=== PATIENT | male | born 1945 | race Caucasian/White ===

== ENCOUNTER 2016-09-20 05:42 | Day surgery (SDC) | payer MEDICARE, OTHER ==
[~2016-09-20] VITALS: Ht 177.8 cm; Wt 144.6 kg
[2016-09-20] VITALS (12 sets, daily range): BP systolic 103–126; BP diastolic 61–78; PULSE 64–90; RESP 14–25; O2SAT 92–99
[~2016-09-20 05:42] MED LIST: ASPI325T32 PO; ATOR20TA PO; DILT240C89 PO; DOCO1CAP3 PO; LEVO125T6 PO; LISI1TAB9 PO; Lactated Ringer's 1,000 ML IV ONE; MULT-1073 PO
[2016-09-20] MEDS ORDERED: Succinylcholine Chloride 20 mg/mL 5 mL Inj ONE (05:43)
[2016-09-20] MEDS ORDERED: Propofol 10,000 mCg/mL 20 mL Inj ONE (05:43)
[2016-09-20] MEDS ORDERED: Ondansetron 2 mg/mL 2 mL Inj ONE (05:43)
[2016-09-20] MEDS ORDERED: HYDROmorphone 2 mg/mL Inj ONE (05:43)
[2016-09-20] MEDS ORDERED: Rocuronium 10 mg/mL 5 mL Inj ONE (05:43)
[2016-09-20] MEDS ORDERED: fentaNYL-PF 50 mCg/mL 2 mL Inj ONE (05:43)
[2016-09-20] MEDS ORDERED: CeFAZolin Inj 3 Gm/ D5W 50 mL Bag IV ONE (05:48)
[2016-09-20] MEDS ORDERED: Bupivacaine Liposome 1.3% 20 mL Inj NERVEBLOCK ONE (06:00)
[2016-09-20] MEDS ORDERED: Tranexamic Acid Inj 1,000 MG in 0.9% Sodium Chloride 100 ML IV SCH (06:00)
[2016-09-20] MEDS ORDERED: CeFAZolin Inj 3 GM in Dextrose 5% Minibag Plus 50 ML IV ONE (06:00)
[2016-09-20] MEDS ORDERED: Lactated Ringer's 1,000 ML IV ONE (06:07)
[2016-09-20] MEDS ORDERED: Vancomycin 1,000mg/200 mL NS IV ONE (07:32)
[2016-09-20] MEDS ORDERED: MetoCLOpramide 5 mg/mL 2 mL Inj IVPUSH PRN ×2 (07:40→07:55)
[2016-09-20] MEDS ORDERED: Magnesium Hydroxide 10 mL Oral Concentration PO PRN (07:40)
[2016-09-20] MEDS ORDERED: Sodium Biphos-Phos 133 mL Enema RECTAL PRN (07:40)
[2016-09-20] MEDS ORDERED: Vancomycin Dose per Pharmacist XX ONE ×2 (07:40)
[2016-09-20] MEDS ORDERED: Ondansetron 2 mg/mL 2 mL Inj IVPUSH PRN ×2 (07:40→07:55)
[2016-09-20] MEDS ORDERED: Polyethylene Glycol (PEG) 17 Gm Powder PO PRN (07:40)
[2016-09-20] MEDS ORDERED: diphenhydrAMINE 25 mg Capsule PO PRN (07:40)
[2016-09-20] MEDS ORDERED: Vancomycin Inj 2,500 MG in 0.9% Sodium Chloride 1,000 ML IV ONE (07:41)
[2016-09-20] MEDS ORDERED: Lactated Ringer's 500 ML IV PRN (07:53)
[2016-09-20] MEDS ORDERED: Lactated Ringer's 1,000 ML IV SCH (07:53)
--- NOTE | 2016-09-20 07:53 | PCM.HPANE ---
Patient Data Date of Service: September 20, 2016 (0715) Surgeon Admitting Provider: Attending Provider:Doug Valiente MD Primary Care Physician:Dread Ozuna MD Other Provider:Stas Lundberg Anesthesia Reason for Visit Left Knee Arthritis LEFT KNEE ARTHRITIS Ht/WT & BMI Height (Feet): 5 Height (Inches): 10.00 Weight (Kilograms): 144.600 Body Mass Index 45.00 Allergies Coded Allergies: codeine (Verified Allergy, Intermediate, ITCHING, 10/11/14) Past Anesthesia History Anesthesia History: Denies:: Abnormal Airway, Anesthesia Reactions, Difficult Intubation, Fam Anesthesia Reaction, Fam Malignant Hypertherm, Malignant Hyperthermia Diabetes History Hx Diabetes?: No MRSA MRSA: No Medications Blood Thinner: Aspirin Hypertension Medication: Yes Home Meds Incl Beta Aysha: No Reported Medications Lisinopril / HCTZ 20-12.5 mg 1 Each Tablet1 Each PO DAILY Ref 0 09/15/16 Levothyroxine 125 Mcg Ifeedw465 Mcg PO DAILY For Thyroid Replacement Ref 0 09/15/16 Diltiazem ER 240 Mg Cap.er.81s882 Mg PO DAILY Ref 0 09/15/16 Docosahexanoic Acid/Epa (Fish Oil Concentrate Softgel)1 Each Capsule1 Each PO 3xweek 09/15/16 Multivits-Min/FA/Lycopene/Lut (Centrum Silver Tablet)1 Each Tablet1 Each PO DAILY 09/15/16 Atorvastatin (Lipitor)20 Mg Alngkk99 Mg PO DAILY Ref 0 09/15/16 Aspirin 325 Mg Frfofp990 Mg PO DAILY #1 BOTTLE 09/15/16 Discontinued Reported Medications Multivitamin (Multivitamins)1 Each Capsule1 Each PO 10/11/14 Aspirin 325 Mg Tablet.dr325 Mg PO DAILY #1 BOTTLE Ref 0 10/11/14 Levothyroxine (Synthroid)125 Mcg Zslmdg576 Mcg PO DAILY 30 Days Ref 0 10/11/14 Lisinopril / HCTZ 20-12.5 mg 1 Each Tablet1 Each PO DAILY 30 Days Ref 0 10/11/14 Atorvastatin (Lipitor)20 Mg Tmqcas92 Mg PO DAILY 30 Days Ref 0 10/11/14 Diltiazem HCl (Diltiazem 24Hr ER)240 Mg Cap.er.52n440 Mg PO DAILY 30 Days Ref 0 10/11/14 History History of ENT Problems?: No HEENT History: Denies:: Abnormal Airway Difficult Intubation Dysphagia Hearing Problem Denture Type: None Teeth Condition: Within Normal Limits Hx of Heart Problems?: Yes Cardiovascular History: Positive for:: Atrial Fibrillation Hypertension Denies:: AICD Chest Pain Pacemaker Valvular Heart Disease (echo 2011- ef 60-65%) Hx of Respiratory Problem?: Yes Respiratory History: Positive for:: Use of C-PAP Machine Denies:: Asthma COPD Cough Hemoptysis Oxygen Administration Pneumonia Tuberculosis Hx Neurologic Problems?: No Neurological History: Denies:: CVA Dementia Multiple Sclerosis Parkinson's Disease Seizures Hx of GI Problems?: Yes Hx of Problems?: No Male Hx: Denies:: Prostate Problems Skin History: Denies:: History Skin Disorders? Hx Musculoskeletal Problems?: Yes Musculoskeletal History: Positive for:: Musculoskeletal Trauma (left knee current admission problem) Osteoarthritis Denies:: Joint Replacement Psycho Social History: Denies:: Anxiety Hx Depression Hx Surgeries?: Yes (ARMS, SHOULDERS, RIBS, HIP) Hx Any Other Health Problems?: Yes Other History: Denies:: Cancer Hx Diabetes: No Hx Alcohol Use: Yes (10 DRINKS/WEEK)Hx Substance Use: No Smoking Status: Never Smoker Have You Smoked inLast 12 mo: No Stop/Bang P-Blood Pressure: treated: Yes B- Body Mass Index > 35 kg/m2: Yes A- Age over 50: Yes N- Neck Large Circumference: Yes G- Gender Male: Yes Risk Assessment Category Category 1A: Patient has history of documented sleep apnea, and HAS NOT received any narcotic, sedative or anesthesia administration during this stay. Category 1B: Patient has history of documented sleep apnea, and HAS received any narcotic , sedative or anesthesia administration during this stay Category 2: Patient has SUSPECTED Obstructive Sleep Apnea, and HAS received any narcotic , sedative or anesthesia administration during this stay. Category 3: Patient has SUSPECTED Obstructive Sleep Apnea and HAS NOT received narcotic, sedative or anesthesia administration during this stay. Category 4: Outpatient in Procedural Areas with known sleep apnea or who screen positive for High Risk via the STOP/BANG questionnaire. Exam Exam Vital Signs Vital Signs Date Time Temp Pulse Resp B/P Pulse Ox O2 Delivery O2 Flow Rate FiO2 09/20/16 06:14 35.7 88 14 126/63 95 Room Air General Appearance: Alert, Oriented X3, Cooperative, No Acute Distress HEENT/AIRWAY: MP 3 Lungs: Clear to Auscultation Heart: Exam Unremarkable Meds/Labs/Diagnostics Admission Meds Current Medications Lactated Ringer's (Lr) 1,000 ml @ ud STK-MED ONCE IV Last administered on 09/20t 06:07; Start 09/20/16 at 06:07; Stop 09/20/16 at 06:08; Status DC Plan Impression Patient chart reviewed, patient interviewed and anesthestic plan with risks, benefits, and alternatives discussed, and informed consent obtained. ASA Physical Status: ASA3 Severe Disease Anesthetic Plan: GA Bene/Risks/Altern/Consents: Yes HP Complete Prior to Induction: Yes Lior Rivas MD September 20, 2016 07:53
[2016-09-20] MEDS ORDERED: Phenylephrine 10,000 mCg/mL Inj IVPUSH PRN (07:55)
[2016-09-20] MEDS ORDERED: Dexamethasone 4 mg/mL Inj IVPUSH PRN (07:55)
[2016-09-20] MEDS ORDERED: HYDROmorphone 1 mg/mL Inj IVPUSH PRN (07:55)
[2016-09-20] MEDS ORDERED: fentaNYL-PF 50 mCg/mL 2 mL Inj IVPUSH PRN (07:55)
[2016-09-20] MEDS ORDERED: EPHEDrine Sulfate 50 mg/mL Inj IVPUSH PRN (07:55)
[2016-09-20] MEDS ORDERED: Vancomycin 1,000 mg Inj IRRIGATION ONE (07:58)
[2016-09-20] MEDS ORDERED: Bupivacaine Liposome 1.3% 20 mL Inj INFILTRATE ONE (08:17)
[2016-09-20] MEDS ORDERED: Bupivacaine-MPF 0.25%/EPI 30 mL Inj INFILTRATE ONE (08:18)
[2016-09-20] MEDS: Vancomycin Inj 1,500 MG in 0.9% Sodium Chloride 500 ML IV ONE ×2 (08:20→08:53)
[2016-09-20] MEDS ORDERED: Gentamicin 40 mg/mL 2 mL Inj IRRIGATION ONE (08:23)
[2016-09-20] MEDS: Senna-Docusate 8.6-50 mg Tablet PO SCH ×2 (08:30→20:11)
[2016-09-20] MEDS: Sodium Chloride LOK Flush 10 mL Syringe IV SCH ×2 (08:30→16:30)
--- NOTE | 2016-09-20 10:10 | NUR ---
Admit to 1005 Patient admitted to room 1005 on bed from OR. Patient was saline locked, on 4L nasal canula and denied pain. LLE was wrapped in an vito bandage from thigh to toes with palpable pedal pulses, sensation, and movement in toes on LLE. Continuous pulse ox was placed on patient, with O2 sats in upper 90s. Hemavac was unclamped on arrival to room. CPAP from home accompanied patient to room. Patient denied N/V, chest pain, tingling and numbness in LLE. Started on a clear liquid diet. Oriented to room, at bedside, will continue to monitor.
--- NOTE | 2016-09-20 10:16 | DRSVH ---
PROCEDURE: X-RAY LEFT KNEE, ONE OR TWO VIEWS ([id number]) INDICATIONS: postop TECHNIQUE: 3 views of the knee were acquired. COMPARISON: [facility], CR, XR KNEE ARTHRITIC SERIES LT, 08/24/2016, 15:46. FINDINGS: Bones: There are postsurgical changes status post medial unicompartmental arthroplasty of the left kn ee. There is near-anatomic alignment. No periprosthetic fractures or suspicious lucencies. Soft tissues: There are associated postsurgical changes including a joint effusion with soft tissue a nd joint space gas and a surgical drain. A calcification is again noted adjacent to the medial femor al condyle related to prior capsular sprain. IMPRESSION: 1. Expected postsurgical changes status post medial unicompartmental arthroplasty. Dictated by: Sadi Heart M.D. on 09/20/2016 at 9:57 Approved by: Sadi Heart M.D. on 09/20/2016 at 10:14
[2016-09-20] MEDS ORDERED: HYDROmorphone 0.5 mg/0.5 mL iSecure Syringe IVPUSH PRN (10:20)
[2016-09-20] MEDS ORDERED: Ketorolac 15 mg/mL Inj IVPUSH PRN (10:20)
--- NOTE | 2016-09-20 10:22 | OP ---
[address] [address] OPERATIVE REPORT PATIENT: VA LIN : 1945 MR#: [id number] ADMIT: 09/20/2016 JOB ID: [id number] DATE OF SURGERY: 09/20/2016 PREOPERATIVE DIAGNOSIS(ES): Advanced medial compartment osteoarthritis. POSTOPERATIVE DIAGNOSIS(ES): Advanced medial compartment osteoarthritis with some mild chondromalacia of the posterior aspect of the lateral tibial plateau. SURGEON: Doug Valiente MD STRAP CUTTER: Sandy Simeon PA-C. Service Vehicle Operator required due to the complexity of the operation. Arthroscopy required to determine appropriateness for unicompartmental versus total knee replacement. INDICATIONS: This gentleman understands the potential for risks and complications, which include, but is not limited to infection, thromboembolic, neurovascular events, and progressive arthritis in resurfaced compartments as well as implant failure. He wishes to proceed with total versus partial knee replacement depending on findings at the time of surgery. FINDINGS: Diagnostic arthroscopy revealed advanced arthritis of the medial compartment, a large osteophyte at the lateral aspect of the notch and then in the medial gutter. Normal femoral articular cartilage on the lateral side, subtle mechanically insignificant fraying of the lateral meniscus, and mild chondromalacia of the posterior aspect of the tibial plateau. PROCEDURE: 1. Diagnostic arthroscopy to determine appropriateness for unicompartmental knee replacement. 2. Unicompartmental knee replacement. PROCEDURE DESCRIPTION: The patient was prepped and draped in usual sterile fashion. A tourniquet was elevated. The anteromedial portal was made and the arthroscope was introduced. A diagnostic arthroscopy was carried out with the findings mentioned above. Following this, a decision was made to proceed with a unicompartmental knee arthroplasty based on the patient's preferences. The knee was lavaged of sterile irrigant after the arthroscope had been removed with lavage through the trocar. Following this a trocar was removed. The patient was then prepared for unicompartmental knee arthroplasty and an anteromedial approach was made. Dissection carried down. Frontal bossing was removed from the tibia and a patellar osteophyte was removed. The tibial alignment guide was positioned and a standard depth tibial cut was made. The bone fragment was removed. A spacer was applied between the spacer block in the distal femur. Distal femoral cut was made and the caliper was utilized. It measured approximately 5.3 mm of thickness. The femur was then sized to a #7 femoral component. The chamfer block fixed in appropriate position. Rotation and drill holes and chamfer cuts were made. Bone fragments removed. All meniscal tissue and osteophytes were removed from the knee. The tibia was sized to an 8 provisionally fixed drill holes were made. Trial reduction was performed and an 8 mm polyethylene produced excellent soft tissue retention, tracking, and alignment. Approximately 1 mm of laxity demonstrated at 15 degrees flexion and in full flexion. Wounds irrigated with more sterile irrigant. Pressurized lavage was followed by pressurized cementation of the components. Excess cement was removed during the curing process and the final construct was assembled. The tourniquet was let down. Hemostasis achieved. A deep Hemovac drain was left. The deep fascia was closed with #2 Quill deep followed by 2-0 Vicryl, 3-0 and a 4-0 intracuticular stitch. Betadine was lavaged through the deep wounds after the deep fascia had been closed and initially after the skin incision down to the fascia. Wounds irrigated with sterile irrigant. Final closure with 2-0, 3-0, and a 4-0 intracuticular stitch with Steri-Strips. Sterile dressing applied. The patient was returned to the recovery room in stable condition.
[2016-09-20] MEDS: Lactated Ringer's 1,000 ML IV SCH ×2 (10:38→18:30)
--- NOTE | 2016-09-20 11:16 | PCM.ANEP1 ---
Post Anesthesia Phase 1 PACU Phase 1 Assessment Date of Service: September 20, 2016 (0715) Vital Signs Vital Signs Date Time Temp Pulse Resp B/P Pulse Ox O2 Delivery O2 Flow Rate FiO2 09/20/16 10:50 Supplement Oxygen 09/20/16 10:39 36.0 70 18 112/69 97 Nasal Cannula 4.00 09/20/16 10:04 70 20 111/68 92 Nasal Cannula 4 09/20/16 10:00 71 17 113/61 93 Nasal Cannula 4 09/20/16 09:45 75 23 108/66 92 Nasal Cannula 4 09/20/16 09:40 36.2 77 19 112/66 93 Nasal Cannula 4 09/20/16 09:35 71 25 113/71 96 Nasal Cannula 4 09/20/16 09:30 81 20 103/61 94 Room Air 09/20/16 09:25 90 24 112/72 95 Room Air 09/20/16 09:20 81 22 116/71 99 Simple Mask 8 09/20/16 06:14 35.7 88 14 126/63 95 Room Air Anesthetic Administered: GA Level of Alertness: Sleepy, easy to arouse MORALES's with Equal Strength: No (post op knee. RLE stronger than LLE) Pain: No Nausea or Vomiting: No Oxygen Delivery: Room Air Lungs: Clear to Auscultation Dermatome Level: Full Sensation Complications: No Lior Rivas MD September 20, 2016 11:16
--- NOTE | 2016-09-20 14:03 | NUR ---
Evaluation completed. Please go to "Notes" then click on "Assessments and Notes" (bottom left corner of screen). Then select appropriate discipline tab on top of screen.
--- NOTE | 2016-09-20 18:37 | NUR ---
Output Patient 8 hours post surgery with no urge to void. Bladder scan showing more than 600mLs, assisted patient to bathroom to void, with no output and no urge to void. Gore catheter placed using sterile technique at 182. Once catheter started draining urine, patient stated that he could tell that it was in and had relief. At 184, 600mLs output. Catheter staying indwelling per MD order. Care continues. Addendum: 09/20/16 at 1840 by JOE CHINO RN Amended: Links added.
[2016-09-21] MEDS: Sodium Chloride LOK Flush 10 mL Syringe IV SCH ×3 (00:30→21:14)
--- NOTE | 2016-09-21 00:55 | NUR ---
Pain/LT knee/Gore Pt c/o 11/15 LT knee pain. Oxycodone 5mg given and helpful per patient. LT knee continues with ORTIZ wrap from thigh to foot along with ice packs around the knee. No drainage noted on ortiz wrap at this time. Gore patent and draining to gravity. Care ongoing.
[2016-09-21 01:24] VITALS: BP 137/91; PULSE 76; RESP 18; O2SAT 95
--- NOTE | 2016-09-21 06:26 | NUR ---
Pain Pt c/o 4/10 pain to LT knee. Toradol 15mg IVP given. Will reassess for effect after 30 mins. Care ongoing.
[2016-09-21 06:29] VITALS: BP 138/93; PULSE 67; RESP 20; O2SAT 94
[2016-09-21] MEDS: Lactated Ringer's 1,000 ML IV SCH ×2 (07:00→19:30)
[2016-09-21] MEDS ORDERED: Vancomycin Inj 2,000 MG in 0.9% Sodium Chloride 500 ML IV ONE (08:30)
[2016-09-21] MEDS: HYDROcodone-APAP 7.5-325 mg Tablet PO PRN ×4 (09:30→21:49)
[2016-09-21] MEDS: Senna-Docusate 8.6-50 mg Tablet PO SCH ×2 (09:31→21:14)
[2016-09-21] MEDS: Diltiazem CD 240 mg ER24 Capsule PO SCH (09:35)
[2016-09-21 13:18] VITALS: BP 134/73; PULSE 89; RESP 18; O2SAT 96
--- NOTE | 2016-09-21 13:56 | PCM.PNORTH ---
Subjective Date of Service: September 21, 2016 Visit Information: Reason for Visit Left Knee Arthritis Surgery/Surgery Date L MEDIAL UKA 09/20/16 Post-Op Day # 1 Date of Admission: Hospital Day # Subjective Patient states he has been having pain in his knee but states it is tolerable and most likely due to physical therapy. Patient is concerned as he has had urinary retention and had to have a smith placed last night. He states the smith was removed earlier this morning and he has not voided yet. Postop General: No Shortness of Breath, No Chest Pain, Good Appetite Pain Management: PO Objective Exam Objective Patient laying in bed with CPAP on Vital Signs and I/O Vital Sign - Last Date Time Temp Pulse Resp B/P Pulse Ox O2 Delivery O2 Flow Rate FiO2 09/21/16 13:18 36.5 89 18 134/73 96 Room Air 09/20/16 10:39 4.00 Intake and Output 09/20/16 09/20/16 09/21/16 Cumulative From/Thru 15:00 23:00 07:00 09/15/16 09:40 - 09/21/16 06:29 Intake Total 1610 ml 1231 ml 300 ml 3141 ml Output Total 15 ml 670 ml 460 ml 1145 ml Balance 1595 ml 561 ml -160 ml 1996 ml Intake Oral 650 ml 300 ml 950 ml IV Total 1610 ml 581 ml 2191 ml Output Urine Total 600 ml 450 ml 1050 ml Drainage Total 70 ml 10 ml 80 ml Estimated Blood Loss 15 ml 15 ml # Bowel Movements 0 0 General Appearance: Alert, Oriented X3, Cooperative, No Acute Distress Extremities: Distal Pulses Palpable, No Compartment Syndrom Noted, Thigh & Calf Soft/Nontender Postop Sensory Motor: Distal Motor Intact, Movement in Toes, Distal Sensation Intact, NVI Distally SURGICAL WOUND : Wound Location/Description Perioperative dressing clean dry and intact Drain Location Body Site: Knee Incision General Appearance: No Direct Observation Wound Drainage Type: Hemovac (To be removed today) Activity: Ambulate with PT (WBAT c FWW) Assessment & Plan Impression POD#1 Left unicompartmental knee arthroplasty Problems: Plan Weightbearing: Weightbearing as tolerated with a front wheeled walker DVT prophylaxis: 81mg Aspirin BID x6 weeks Physical therapy for transfers, progressive ambulation, strengthening Wound care: Perioperative dressing changed to an island dressing tomorrow by patient unless he is still in house. Analgesia: Percocet 325. Please only use oral pain medication and try Tylenol first. Discharge plan: Discharge home today if urinary retention solves. Start outpatient physical therapy next week. Follow-up plan: In 2 weeks at [facility] with PA for wound check and at [address] Valiente with x-rays Sandy Simeon PA-C September 21, 2016 13:56
--- NOTE | 2016-09-21 16:04 | NUR ---
Social Work: Screening/Discharge D: EMR reviewed. Pt is a 71 y/o admitted for left knee arthritis. Pt will be staying in local [facility] for next 2 weeks until he get strong enough to travel by personal boat to [facility] where he lives with his fiance. PT requested SW to see pt regarding discharge plan. PT recommends HH for PT. SW provided pt with choice list. Pt chose [facility]. SW called [facility] to confirm pt could be seen in [facility]. [facility] confirmed they will take pt for PT. LUZ gave access. SW must get F2F signed by tomorrow and [facility] A: Pt for whom HH has been deemed medically necessary. P: Pt to go to [facility] for 2wks to get stronger prior to taking private boat transport to [facility]. Pt to receive [facility] at [facility] for PT. SW to get F2F signed by ortho tomorrow and fax to [facility]. SANYA Marie
--- NOTE | 2016-09-21 17:00 | PCM.DIOPOR ---
OP Ortho Discharge Instruction Dates of Hospitalization Date of Discharge: September 21, 2016 Providers Admitting Physician: Primary Care Physician: Dread Ozuna MD Attending Physician: Doug Valiente MD Diagnosis at Time of Discharge Post operative diagnosis S/p left partial knee arthroplasty Diet Discharge Diet: No restrictions Activity Activity-General: Balance rest and activity, Elevate & ice extremity, Ice incision 3-5 time/day for 20min Left Lower Extremity: Weight Bearing as tolerated Discharge Assist Device: Front Wheeled Walker Dressing and Incisional Care Dressing Care: Remove outer dressing after 24 hrs (then place island dressing over incision and pull on SAW compression stockings) Hygiene: May shower (with dressing covered in saran wrap or a bag) Additional Instructions Discharge Instructions Weightbearing: Weightbearing as tolerated with a front wheeled walker DVT prophylaxis: Aspirin 81 mg twice a day 6 weeks Wound care: Perioperative dressing will be changed to an island dressing tomorrow by patient. Please remove the vito wrap and cotton padding. Place the island dressing over your incision then compression stockings will then be put on. Shower instructions: May shower with dressing covered with saran wrap or a plastic bag. In one week, patient may remove dressings and shower without incision covered. Analgesia: Percocet 5/325 Ice and elevate frequently. Attend formal physical therapy starting on Tuesday. Follow-up plan: In 2 weeks at [facility] with TITUS for wound check and at [address] Valiente with x-rays Sandy Simeon PA-C September 21, 2016 16:58
[2016-09-21] MEDS ORDERED: ASPI-973 PO (17:01)
[2016-09-21] MEDS ORDERED: OXYC1TAB24 PO (17:01)
--- NOTE | 2016-09-21 18:45 | NUR ---
Retained urine Bladder scanned pt thoroughly @ 1830 and found 620ml retained. Pt went to bathroom and voided 250ml. PVR now scans only 60ml although this pts bladder seems to be placed higher than normal. Pt states that he is comfortable and will continue to go to bathroom to void again. Oncoming nurse aware and we will continue to monitor.
[2016-09-21 19:30] VITALS: BP 135/85; PULSE 84; RESP 20; O2SAT 95
[2016-09-22] MEDS: Sodium Chloride LOK Flush 10 mL Syringe IV SCH ×2 (01:11→08:52)
[2016-09-22] MEDS: HYDROcodone-APAP 7.5-325 mg Tablet PO PRN ×2 (02:10→12:39)
[2016-09-22 05:10] VITALS: BP 105/69; PULSE 65; RESP 20; O2SAT 98
[2016-09-22] MEDS: Lactated Ringer's 1,000 ML IV SCH (08:00)
--- NOTE | 2016-09-22 08:25 | PCM.PNORTH ---
Subjective Date of Service: September 22, 2016 Visit Information: Reason for Visit Left Knee Arthritis Surgery/Surgery Date L MEDIAL [facility]A 09/20/16 Post-Op Day # 2 Date of Admission: Hospital Day # Subjective Patient explains urinary retention yesterday and his discharge was held. Patient lives on [facility]. He plans on staying at a local motel in [place] for the next couple of weeks while he recuperates before returning to the [place]. We will plan on ordering home health to see him at the mot while he was here in town. Patient states that he is urinating on his own. He feels that he is ready to be discharged today. He complains of incisional pain that is relieved with [place]. Postop General: No Shortness of Breath, No Chest Pain, Good Appetite Pain Management: PO Objective Exam Objective Patient is seen sitting up in bed Vital Signs and I/O Vital Sign - Last Date Time Temp Pulse Resp B/P Pulse Ox O2 Delivery O2 Flow Rate FiO2 09/22/16 05:10 36.8 65 20 105/69 98 Room Air 09/20/16 10:39 4.00 Intake and Output 09/21/16 09/21/16 09/22/16 Cumulative From/Thru 15:00 23:00 07:00 09/15/16 09:40 - 09/22/16 05:38 Intake Total 1200 ml 600 ml 4941 ml Output Total 250 ml 1400 ml 2795 ml Balance 950 ml -800 ml 2146 ml Intake Oral 1200 ml 600 ml 2750 ml IV Total 2191 ml Output Urine Total 250 ml 1400 ml 2700 ml Drainage Total 80 ml Estimated Blood Loss 15 ml # Bowel Movements 0 0 General Appearance: Alert, Oriented X3, Cooperative, No Acute Distress Extremities: Distal Pulses Palpable, No Compartment Syndrom Noted, Thigh & Calf Soft/Nontender Postop Sensory Motor: Distal Motor Intact, NVI Distally SURGICAL WOUND : Wound Location/Description Left knee: Surgical dressing is removed. There is a scant amount of dried serous drainage on the bandage. The drain portal is bandaged with gauze and Tegaderm. No drainage is seen at that location. There is no acute drainage at the surgical incision, no erythema. The wound is cleansed with hydrogen peroxide and an island dressing is applied. Patient is wearing thigh high compression stockings. Incision General Appearance: Steri Strips, Well Approximated Activity: Ambulate with PT (WBAT c FWW) Catheters: None Assessment & Plan Impression 1. POD #2 left knee unicompartmental arthroplasty 2. Urinary retention - resolved Problems: Plan Weightbearing: Weightbearing as tolerated with a front wheeled walker DVT prophylaxis: enteric coated Aspirin 325 mg BID x6 weeks Physical therapy for transfers, progressive ambulation, strengthening Wound care: Dressing change by PA today to Island dressing. Urinary retention has resolved Analgesia: Pain is well-controlled with [place] Discharge plan: Dis[place]. He will be staying in town at a local motel for the next couple of weeks. Home health physical therapy has been ordered for the time period that the patient will be here in [place]. Follow-up plan: In 2 weeks at [facility] with PA for wound check and at [address] Valiente with x-rays Pain Management: [place], Toradol VTE Prophylaxis: SCDs, Other (aspirin) Resuscitation Status: CPR: Attempt Resuscitation DasherOpal Aguiar PA-C September 22, 2016 08:25
[2016-09-22] MEDS: Diltiazem CD 240 mg ER24 Capsule PO SCH (08:52)
[2016-09-22] MEDS: Senna-Docusate 8.6-50 mg Tablet PO SCH (08:53)
--- NOTE | 2016-09-22 09:03 | PCM.DC.ORT ---
Discharge Summary Date of Service: September 22, 2016 Date of Hospital Admission: Date of Surgery: September 20, 2016 Date of Discharge: September 22, 2016 Reason for Hospitalization: Left knee arthritis Procedures Performed: Left knee medial unicompartmental arthroplasty Hospital Course: The patient was admitted to the hospital on 09/20/2016 and underwent the above procedure. Antibiotic prophylaxis consisting of Ancef and vancomycin. The surgeon was Dr. Valiente. Patient tolerated the procedure well and was transferred to recovery room in stable condition. Patient had physical therapy to work on ambulation and transfers. Weightbearing as tolerated with walker. Pain was managed with Dilaudid, Luverne, Vistaril, Toradol. DVT prophylaxis: Aspirin 325 mg twice a day. Patient progressed well with physical therapy and was scheduled for discharge home on 09/21/2016 however he developed urinary retention. Discharge was held. By 09/22/16 patient was urinating on his own. Patient was discharged in stable condition. [place]. He will stay a local mot in [place] for the next couple of weeks. Home health physical therapy is ordered to see him while he is at the mot. Dressing was changed today. Follow-up: at [facility] 2 weeks postop for wound check and at [address] Valiente with x-ray Diagnosis at Time of Discharge Status post left knee medial unicompartmental arthroplasty Problems: Disposition: Discharged home in stable condition Discharge Instructions: Weightbearing as tolerated with front wheeled walker Showering: Cover the wound with plastic to shower for the first week after surgery. After that, the patient may shower with the wound uncovered. Let soap and water run over the wound, pat dry and apply a new dressing. Ice the knee 6-10 times a day Every hour of the day that you are awake, Up and do some exercise for your knee. Either increase your walking a little more each time or do some of the exercises he learned in therapy. Use the breathing machine every hour of the day 10 times for the next 2 weeks Push herself with bending the knee. It will be sore but it is good to push it as it will increase your motion. To prevent constipation, use Colace for the next week or 2. Drink lots of fluid. Heat high-fiber foods. You may also use MiraLAX once a day. It is available at local drug stores or grocery stores. Discharge Medications Correction to medication list: Patient is discharged home with Luverne 5/325 mg 1 or 2 every 4 hours when necessary pain. Oxycodone is discontinued. Aspirin (Aspirin) 81 Mg Tablet 81 MG PO DAILY Atorvastatin (Lipitor) 20 Mg Tablet 20 MG PO DAILY Diltiazem ER (Diltiazem ER) 240 Mg Cap.er.24h 240 MG PO DAILY Docosahexanoic Acid/Epa (Fish Oil Concentrate Softgel) 1 Each Capsule 1 EACH PO 3xweek Levothyroxine (Levothyroxine) 125 Mcg Tablet 125 MCG PO DAILY Lisinopril / HCTZ 20-12.5 mg (Lisinopril / HCTZ 20-12.5 mg) 1 Each Tablet 1 EACH PO DAILY Multivits-Min/FA/Lycopene/Lut (Centrum Silver Tablet) 1 Each Tablet 1 EACH PO DAILY oxyCODONE-Acetaminophen 5-325 mg (oxyCODONE-Acetaminophen 5-325 mg) 1 Each Tablet 1-2 TAB PO Q6H PRN PRN For Pain Opal Peralta PA-C September 22, 2016 09:03
--- NOTE | 2016-09-22 14:08 | NUR ---
Discharge Patient left unit via wheelchair with . Education given for all medications and dressing/incision. Patient states he understands all instructions. Extra dressing supplies sent with patient. All belongings with patient.
== END 2016-09-22 13:59 | disposition home or self-care (01) ==
LOC: SAS 05:42 → OSC 09:55 → SAS 09-22 13:59
PROVIDERS: ATTEND Orthopaedic Surgery
DX: M17.12 Unilateral primary osteoarthritis, left knee (principal); I10 Essential (primary) hypertension; I48.91 Unspecified atrial fibrillation; G47.33 Obstructive sleep apnea (adult) (pediatric); E78.5 Hyperlipidemia, unspecified; E03.9 Hypothyroidism, unspecified; E66.01 Morbid (severe) obesity due to excess calories; Z68.42 Body mass index [BMI] 45.0-49.9, adult; Z79.82 Long term (current) use of aspirin
CPT/HCPCS: 27446; 73560; 97110; 97116; 97161; C1713; C1776; G8978; G8979; J0330; J0690; J1170; J1580; J1885; J2405; J3010; J3370; J7040; J7120